=== PATIENT | female | born 1995 ===

== ENCOUNTER 2022-05-13 19:31 | Inpatient (IN) ==
[2022-05-13] MEDS ORDERED: LIDOCAINE 1% LOCAL 20 ML VIAL INFIL PRN (22:06)
[2022-05-13] MEDS ORDERED: OXYTOCIN 30 UNITS/500 ML BAG IV PRN (22:06)
--- NOTE | 2022-05-13 22:15 | History & Physical Report ---
Date of Service May 13, 2022 Assessment & Plan (1) Encounter for supervision of normal intrauterine in primigravida, antepartum: Plan: 26-year-old at 38 weeks 5 days gestational age in labor. Patient progressed from 2.5 cm to 4 cm over 2 hours. 1. Fetus: Cat 1 2. Labor: Progressing 3. GBS negative 4. Vitals WNL. (2) Normal labor and delivery: History of Present Illness Primary Care Provider: NO PCP 26-year-old currently at 38 weeks 5 days gestational age presents in labor. Reporting contractions every 5-6 minutes. Reports that contractions have been worsening throughout the day today. Has noted bloody discharge. Denies any concern for rupture. Initial OB Labs (10/25/21) Blood Type & RH B positive Antibody Screen negative HCT/HGB 44.2/15.1 Platelets 179 Hep C IgG 13yrs+ Old non reactive Pap Test Negative (10/25/21) Chlamydia Negative Gonorrhea Negative Rubella immune RPR Non Reactive Urine Culture/Screen no growth HBsAg non reactive HIV non reactive MCV 89.7 TSH 0.982 MSAFP screen Neg for ONTD (12/07/21) 24-28 Week OB Labs HCT/HGB 38.2/13.3 Glucose 96 gbs neg--akh Allergies Allergy/AdvReac Type Severity Reaction Status Date / Time No Known Allergies Allergy Verified 05/12/22 20:58 Home Medications Medication Instructions Recorded Confirmed Type prenat.vits,rufino,owb-mitu-awimn 1 tab PO DAILY 04/06/22 05/13/22 History Patient History Medical History (Updated 05/13/22 @ 22:14 by Manolo Pacheco MD) No significant past medical history Social History (Updated 04/06/22 @ 13:28 by Felisha Partida) Smoking Status: Never smoker Hx Alcohol Use: No Hx Substance Use: No Preferred Language: Romansh marital status: marital status details: rafita (26) [phone] Current Living Situation: Spouse Current Living Situation Comment: lives with spouse and parents. current occupational status: employed current occupation: PHD student. Physical Exam Genitourinary: normal external appearance Manual OB Exam: + cervical dilation 4 cm, + cervical effacement 80% and + station -1 OB Exam Monitor Tracing: + external FHT monitor used, + external uterine monitor used, + category I, + normal FHT variability and + variable decelerations ( occasional) progressed from 2.5/75/- 2 to 4/80/-1 Results & Data Vital Signs (Past 12 Hours) Vital Signs Temp Pulse Resp BP 05/13/22 20:33 65 05/13/22 20:33 116/75 05/13/22 19:45 71 142/85 H 05/13/22 19:50 36.8 C 16 Coding Level of Care Code None Diagnoses Encounter for supervision of normal intrauterine in primigravida, antepartum Z34.00 Normal labor and delivery O80
[2022-05-13] MEDS ORDERED: LIDOCAINE 2%/EPINEPHRINE 1:200,000 20 ML PF ONE (22:20)
[2022-05-13] MEDS ORDERED: SODIUM CHLORIDE 0.9% PF INJ 10 ML VIAL ONE (22:20)
[2022-05-13] MEDS ORDERED: ePHEDrine sulfate 50 MG/ML AMP ONE (22:20)
[2022-05-13] MEDS ORDERED: BUPIVACAINE 0.25% PF 30 ML VIAL ONE (22:20)
[2022-05-13] MEDS ORDERED: fentaNYL citrate PF 100 MCG/2 ML VIAL ONE (22:20)
[2022-05-13] MEDS ORDERED: fentaNYL 2MCG/ML ROPIVACAINE 1.25MG/ML 100 ML BAG EPI ONE (22:21)
[2022-05-13 22:50] LABS: Hematocrit (blood only) 37.4 % (37.0-47.0); Hemoglobin 13.5 g/dl (12.0-16.0); Mean Corpuscular Hemoglobin 33.6 pg (25.0-34.0); Mean Corpuscular Hgb Conc 36.1 g/dL (32.0-36.0); Mean Platelet Volume 12.5 fL (9.4-12.4); Platelet Count 120 K/uL (130-400); RDW Coefficient of Variation 11.8 % (11.5-14.5); RDW Standard Deviation 39.7 fL (36.4-46.3); Red Blood Count 4.02 M/uL (4.20-5.40); White Blood Count 9.34 K/ul (4.8-10.8)
[2022-05-13] MEDS: LACTATED RINGER'S 1,000 ML IV PRN (23:45)
[2022-05-14] MEDS ORDERED: diphenhydrAMINE 50 MG/ML VIAL IV PRN (00:31)
[2022-05-14] MEDS ORDERED: ePHEDrine sulfate 50 MG/ML AMP IV PRN (00:31)
[2022-05-14] MEDS ORDERED: ONDANSETRON INJ 2 MG/ML 2 ML VIAL IV PRN (00:31)
[2022-05-14] MEDS ORDERED: NALBUPHINE HCL INJ 10 MG/ML AMP IV PRN (00:31)
[2022-05-14] MEDS ORDERED: fentaNYL 2MCG/ML ROPIVACAINE 1.25MG/ML 100 ML BAG EPI PRN (00:31)
[2022-05-14] MEDS ORDERED: NALOXONE HCL 1 MG in SODIUM CHLORIDE 0.9% 1000ML 1,000 ML IV PRN (00:31)
[2022-05-14] MEDS ORDERED: NALOXONE HCL 0.4 MG/1 ML VIAL/CARP IV PRN (00:31)
--- NOTE | 2022-05-14 00:33 | Anesthesiology Consultation ---
Date of Service May 14, 2022 Assessment & Plan (1) Encounter for pre-operative examination: Chart Review Chart Review: Patient NOT seen in Pre Admission Testing and Acceptable Risk for Labor Epidural Consults Requested none History Height/Weight Height: 5 ft 6.14 in Weight: 67.585 kg Allergies Allergy/AdvReac Type Severity Reaction Status Date / Time No Known Allergies Allergy Verified 05/12/22 20:58 Medications Home Medications Medication Instructions Recorded Confirmed Last Taken prenat.vits,rufino,ozn-tolc-iijyi 1 tab PO DAILY 04/06/22 05/13/22 05/13/22 10:00 Active Medications Generic Name Dose Route Start Last Admin Trade Name Freq PRN Reason Stop Dose Admin Lactated Ringer's 1,000 mls @ 125 mls/hr 05/13/22 22:06 05/14/22 00:50 Lr IV 05/15/22 22:05 125 mls/hr .Q8H PRN Administration L&D Protocol Protocol Past Medical History Medical History No significant past medical history Exercise / Class Metabolic Activity II 4-5 Yardwork/Stairs/Walk up hill Social History Smoking Status: Never smoker Hx Alcohol Use: No Hx Substance Use: No substance use type: does not use Physical Exam Vital Signs Last Vital Signs Temp 36.6 C 05/13/22 22:54 Pulse 65 05/14/22 00:49 Resp 16 05/13/22 19:50 BP 121/73 05/14/22 00:49 Pulse Ox 99 05/14/22 00:45 Testing Laboratory Results 05/13/22 22:22
[2022-05-14] MEDS: LACTATED RINGER'S 1,000 ML IV PRN ×2 (00:50→05:14)
--- NOTE | 2022-05-14 07:04 | Labor Progress Brief Note ---
Date of Service May 14, 2022 Subjective Reason For Note: Routine Evaluation Assessment & Plan (1) Encounter for supervision of normal intrauterine in primigravida, antepartum: Plan: 26-year-old at 38 weeks 5 days gestational age in labor. Patient progressed from 2.5 cm to 4 cm over 2 hours. 1. Fetus: Cat 1 2. Labor: Progressing well. 3. GBS negative 4. Vitals WNL. (2) Normal labor and delivery: Admission and Anticipated Discharge Date Admission Date: May 13, 2022 Physical Exam Genitourinary: Manual OB Exam: + cervical dilation 10 cm, + cervical effacement 100% and + station 0 OB Exam Monitor Tracing: + external FHT monitor used, + external uterine monitor used, + category I and + normal FHT variability; no early decelerations present, no late decelerations present and no variable decelerations Results & Data Vital Signs (Past 12 Hours) Vital Signs Temp Pulse Resp BP Pulse Ox 05/14/22 07:01 69 97 05/14/22 06:58 92 H 87 L 05/14/22 06:56 71 96 05/14/22 06:51 73 95 05/14/22 06:48 70 131/71 05/14/22 06:46 70 96 05/14/22 06:41 68 97 05/14/22 06:36 68 97 05/14/22 06:32 86 120/80 05/14/22 06:31 75 95 05/14/22 06:26 73 95 05/14/22 06:21 79 95 05/14/22 06:17 69 108/58 L 05/14/22 06:16 67 95 05/14/22 06:11 66 95 05/14/22 06:06 67 95 05/14/22 06:04 64 114/55 L 05/14/22 06:01 65 95 05/14/22 05:56 72 96 05/14/22 05:51 69 96 05/14/22 05:48 58 L 121/65 05/14/22 05:46 62 96 05/14/22 05:41 68 96 05/14/22 05:36 73 97 05/14/22 05:34 63 122/60 05/14/22 05:31 77 96 05/14/22 05:26 85 96 05/14/22 05:25 84 91 05/14/22 05:21 73 97 05/14/22 05:17 65 117/73 05/14/22 05:16 76 96 05/14/22 05:11 65 97 05/14/22 05:06 60 96 05/14/22 05:01 96 05/14/22 05:01 58 L 05/14/22 05:01 56 L 119/69 05/14/22 04:56 60 96 05/14/22 04:51 62 96 05/14/22 04:46 58 L 122/63 95 05/14/22 04:41 58 L 95 05/14/22 04:36 60 95 05/14/22 04:31 64 95 05/14/22 04:32 60 126/64 05/14/22 04:26 59 L 95 05/14/22 04:21 72 95 05/14/22 04:20 72 89 L 05/14/22 04:18 57 L 117/72 05/14/22 04:16 60 95 05/14/22 04:11 57 L 95 05/14/22 04:06 61 95 05/14/22 04:01 58 L 95 05/14/22 04:02 56 L 117/69 05/14/22 03:57 18 05/14/22 03:57 37.1 C 18 05/14/22 03:56 58 L 96 05/14/22 03:51 60 94 05/14/22 03:46 67 96 05/14/22 03:47 71 117/77 05/14/22 03:43 76 88 L 05/14/22 03:41 69 96 05/14/22 03:36 72 95 05/14/22 03:32 71 120/74 05/14/22 03:31 87 96 05/14/22 03:26 94 05/14/22 03:26 61 05/14/22 03:26 65 94 05/14/22 03:21 67 95 05/14/22 03:20 61 94 05/14/22 03:16 68 100/57 L 05/14/22 03:15 69 95 05/14/22 03:10 95 05/14/22 03:10 62 05/14/22 03:10 64 94 05/14/22 03:05 60 95 05/14/22 03:01 73 95/58 L 0403/23 03:00 63 94 05/14/22 02:55 73 95 05/14/22 02:54 71 94 05/14/22 02:50 72 95 05/14/22 02:48 58 L 94 05/14/22 02:47 62 104/62 05/14/22 02:45 69 95 05/14/22 02:41 79 112/72 05/14/22 02:40 80 96 05/14/22 02:35 66 93 05/14/22 02:30 60 92 05/14/22 02:25 61 93 05/14/22 02:20 58 L 93 05/14/22 02:15 62 94 05/14/22 02:13 58 L 94 05/14/22 02:10 57 L 95 05/14/22 02:05 57 L 94 05/14/22 02:04 65 92 05/14/22 02:00 69 95 05/14/22 01:57 66 94 05/14/22 01:55 80 97 05/14/22 01:50 59 L 97 05/14/22 01:45 67 96 05/14/22 01:46 69 105/64 05/14/22 01:40 65 96 05/14/22 01:35 65 96 05/14/22 01:33 73 104/60 05/14/22 01:30 83 96 05/14/22 01:25 66 96 05/14/22 01:20 73 96 05/14/22 01:15 97 05/14/22 01:15 78 05/14/22 01:15 82 107/61 05/14/22 01:13 75 118/68 05/14/22 01:10 96 05/14/22 01:10 79 05/14/22 01:10 86 112/72 05/14/22 01:07 71 121/79 92 05/14/22 01:05 74 97 05/14/22 01:03 67 112/64 05/14/22 01:00 67 143/86 H 97 05/14/22 00:57 67 130/85 05/14/22 00:55 68 97 05/14/22 00:54 73 127/79 05/14/22 00:51 61 119/76 05/14/22 00:50 64 97 05/14/22 00:49 65 121/73 05/14/22 00:45 75 99 05/14/22 00:39 85 95 05/14/22 00:40 81 94 05/14/22 00:34 97 05/14/22 00:34 84 05/14/22 00:34 76 93 05/14/22 00:29 72 96 05/14/22 00:24 95 05/14/22 00:24 76 05/14/22 00:24 76 94 05/14/22 00:19 94 H 96 05/14/22 00:14 93 H 87 L 05/14/22 00:13 93 H 94 05/14/22 00:09 75 97 05/14/22 00:04 63 95 05/13/22 23:59 66 96 05/13/22 23:58 75 94 05/13/22 23:54 60 96 05/13/22 23:49 64 97 05/13/22 22:54 36.6 C 05/13/22 22:55 62 109/55 L 05/13/22 20:33 65 05/13/22 20:33 116/75 05/13/22 19:45 71 142/85 H 05/13/22 19:50 36.8 C 16 Coding Level of Care Code None Diagnoses Encounter for supervision of normal intrauterine in primigravida, antepartum Z34.00 Normal labor and delivery O80
[2022-05-14] MEDS ORDERED: DIPHTHERIA/TETANUS/PERTUSSIS 0.5mL SYR/VIAL (Age 7+yrs) IM ONE (08:26)
[2022-05-14] MEDS ORDERED: ACETAMINOPHEN 325 MG TAB PO PRN (08:26)
[2022-05-14] MEDS ORDERED: BENZOCAINE 20% AER SPR 82.5 GM CAN EXT PRN (08:26)
[2022-05-14] MEDS ORDERED: bisacodyL 10 MG SUPP PR PRN (08:26)
[2022-05-14] MEDS ORDERED: HYDROCORTISONE ACETATE 25 MG SUPP PR PRN (08:26)
[2022-05-14] MEDS ORDERED: OXYTOCIN 30 UNITS/500 ML BAG IV PRN (08:26)
[2022-05-14] MEDS ORDERED: oxyCODONE/ACETAMINOPHEN 5mg/325mg TAB PO PRN (08:26)
--- NOTE | 2022-05-14 09:13 | Delivery Summary ---
DATE OF SERVICE: 05/14/2022 PROCEDURE: Normal spontaneous vaginal delivery and second-degree perineal laceration repair. SURGEON: Manolo Pacheco MD. PREOPERATIVE DIAGNOSES: 1. Single intrauterine at 38 weeks 6 days gestational age. 2. Spontaneous labor. 3. Meconium-stained fluid. POSTOPERATIVE DIAGNOSES: 1. Single intrauterine at 38 weeks 6 days gestational age. 2. Spontaneous labor. 3. Meconium-stained fluid. 4. Status post procedure. ESTIMATED BLOOD LOSS: 300 mL DRAINS: Straight cath at the completion of the case. URINE OUTPUT: Approximately 500 mL per straight cath. COMPLICATIONS: None. FINDINGS: Viable female with weight pending and Apgars of 7 and 9 at one and five minutes re spectively. DESCRIPTION OF PROCEDURE: The patient progressed to 10 cm dilated, 100% effaced, positive 3 station, pushed over intact perineum with epidural anesthesia and delivered a viable female with weig ht and Apgars as noted above. Head of the delivered in KIRK position, restituted to right tra nsverse. A loose nuchal cord was noted, which was easily reduced. Body and shoulders quickly follow ed. was noted to be vigorous soon after delivery and a 1-minute delayed cord clamping was in itiated. Cord was then double clamped and cut. remained on maternal abdomen for approximate ly a minute and then was taken to the nursery staff for further evaluation. Cord blood was obtained. Attention was then turned to delivery of placenta, which was delivered intact, 3-vessel cord, gentl e cord traction. On inspection of perineum, vagina and cervix, there was noted to be a second-degree perineal laceration, which was repaired with 3-0 Vicryl in continuous running crown stitch. Needle, sponge, and instrument counts were correct at completion of the case with mother and stable in the immediate post-delivery period. Job ID: [id number]
--- NOTE | 2022-05-14 09:48 | Anesthesia Procedure Note ---
Date of Service May 14, 2022 Anesthesia Post Epidural Note Vital Signs Vital Signs: Temp Pulse Resp BP Pulse Ox 98.2 F 95 H 16 106/57 L 100 05/14/22 08:45 05/14/22 09:46 05/14/22 09:30 05/14/22 09:46 05/14/22 08:21 Pain Intensity Abdomen: Pain Intensity: 1 Notes Mental Status: alert / awake / arousable and participated in evaluation Nausea / Vomiting: adequately controlled Pain: adequately controlled Airway Patency, RR, SpO2: stable & adequate BP & HR: stable & adequate Hydration State: stable & adequate Neuraxial Anesthesia: was administered and sensory block is resolving Anesthetic Complications: no major complications apparent and Pt Satisfied with anesthetic care Epidural: Removed without complications and With tip intact
[2022-05-14] MEDS: IBUPROFEN 600 MG TAB PO PRN ×3 (13:13→23:34)
[2022-05-14] MEDS: DOCUSATE SODIUM 100 MG CAP PO SCH (21:31)
--- NOTE | 2022-05-15 06:38 | Obstetrical Progress Note ---
Date of Service May 15, 2022 Assessment & Plan (1) Encounter for care after hospital delivery: Plan - Overall, feeling well and eating well today - Infant feeding going well without concern - Urinating and passing gas appropriately - Ambulating well in room - Pain controlled w/ Ibuprofen - Hgb 13.5 on 05/13 - Vitals stable and wnl - Routine PP care progressing well - Anticipate discharge @ 24-48 hours PP - Recommending f/u outpatient in 6 weeks Admission and Anticipated Discharge Date Admission Date: May 13, 2022 Supervising Physician Co-Signing Physician Notes Resident Physician Supervision Note: I interviewed and examined the patient. Discussed with Dr. Do and agree with findings and plan as documented in the note. Any exceptions or clarifications are listed here: Doing well ppd 1. Routine care. Documented By: Marina Burnette MD, FACOG Subjective Patient is a 26 F who is PPD #1 following delivery at 38 6/7. She reports feeling well overall this morning. - Ambulation - well throughout room - Voiding/Wilkinson - independent voids, no dysuria or pressure - Gas/Stool - passing gas, no bowel movement - Diet - regular, no nausea or emesis - Lochia - diminishing, light amount - Feeding Type - breast feeding - Pain Level - 0/10, controlled with Ibuprofen Review of Systems - Denies fever, chills, sweats - Denies shortness of breath, difficulty breathing, chest pain, palpitations, chest pressure. - Denies breast pain. - Denies dysuria. - Denies headache or changes in vision. Physical Exam Physical Exam: General: Alert, oriented. No acute distress. Cardiac: RRR, normal S1/S2, no murmurs/rubs/gallops. Respiratory: Non-labored, CTAB, no wheezes/rales/rhonchi. Symmetric chest rise. Abdomen: Soft, nontender, nondistended. Bowel sounds present. Uterus: Uterine fundus firm, palpable 2 cm below umbilicus. Lower Extremities: Trace lower extremity edema or swelling. No deep calf pain. Leana's negative bilaterally. Results & Data Vital Signs (Past 12 Hours) Vital Signs Temp Pulse Resp BP Pulse Ox O2 Del Method 05/15/22 03:00 36.5 C 67 16 109/69 98 Room Air 05/14/22 23:35 36.5 C 83 18 126/81 98 Room Air 05/14/22 19:40 36.6 C 73 18 116/77 97 Room Air Resident Activity Tracking Resident Involvement: Resident Care Provided Care Provided: OB Delivery
[2022-05-15 07:29] LABS: Hematocrit (blood only) 30.8 % (37.0-47.0)
[2022-05-15] MEDS: IBUPROFEN 600 MG TAB PO PRN ×3 (08:15→20:45)
[2022-05-15] MEDS: PRENATAL VITAMIN 1 TAB PO SCH (08:16)
[2022-05-15] MEDS: DOCUSATE SODIUM 100 MG CAP PO SCH ×2 (08:17→20:45)
[2022-05-15] MEDS ORDERED: bisacodyL 5 MG TABEC PO SCH (20:00)
--- NOTE | 2022-05-16 06:47 | Obstetrical Progress Note ---
Date of Service May 16, 2022 Assessment & Plan (1) Encounter for care after hospital delivery: (2) Allergic dermatitis: Plan - Overall, feeling well and eating well today - Infant feeding going well without concern - Urinating and passing gas appropriately - Ambulating well in room - Pain controlled w/ Ibuprofen - Hgb 13.5 on 05/13, 11.0 on 05/15 - Allergic dermatitis: suspect a/w epidural tape, discussed OTC hydrocortisone and Benadryl cream for itch as patient wishes to go home today - Vitals stable and wnl - Routine PP care progressing well - Anticipate discharge @ 24-48 hours PP - Recommending f/u outpatient in 6 weeks Admission and Anticipated Discharge Date Admission Date: May 13, 2022 Supervising Physician Co-Signing Physician Notes Resident Physician Supervision Note: I was present with Dr. Cooper during the history and exam. I discussed the case with the resident and agree with the findings and plan as documented in the note. Any exceptions or clarifications are listed here: [None] Documented By: Ana Lorenz MD, FACOG Subjective Patient is a 26 F who is PPD #2 following delivery at 38 6/7. She reports feeling well overall this morning. - Ambulation - well throughout room - Voiding/Wilkinson - independent voids, no dysuria or pressure - Gas/Stool - passing gas, no bowel movement - Diet - regular, no nausea or emesis - Lochia - diminishing, light amount - Infant Feeding Type - breast feeding - Pain Level - 0/10, controlled with Ibuprofen Review of Systems - Denies fever, chills, sweats - Denies shortness of breath, difficulty breathing, chest pain, palpitations, chest pressure. - Denies breast pain. - Denies dysuria. - Denies headache or changes in vision - Notes rash on back near epidural site, itching Physical Exam Physical Exam: General: Alert, oriented. No acute distress. Cardiac: RRR, normal S1/S2, no murmurs/rubs/gallops. Respiratory: Non-labored, CTAB, no wheezes/rales/rhonchi. Symmetric chest rise. Abdomen: Soft, nontender, nondistended. Bowel sounds present. Uterus: Uterine fundus firm, palpable 2 cm below umbilicus. Lower Extremities: Trace lower extremity edema or swelling. No deep calf pain. Leana's negative bilaterally. Skin: Diffuse, pink, raised erythematous rash w/o vesicles or purulence, warmth to touch - localized to center of back (thoraco/lumbar junction) Results & Data Vital Signs (Past 12 Hours) Vital Signs Temp Pulse Resp BP Pulse Ox O2 Del Method 05/15/22 23:45 36.7 C 71 16 94/62 L 97 Room Air 05/15/22 20:20 36.9 C 67 16 115/78 98 Room Air Resident Activity Tracking Resident Involvement: Resident Care Provided Care Provided: OB Delivery
[2022-05-16] MEDS: IBUPROFEN 600 MG TAB PO PRN (08:08)
[2022-05-16] MEDS: PRENATAL VITAMIN 1 TAB PO SCH (08:08)
[2022-05-16] MEDS: DOCUSATE SODIUM 100 MG CAP PO SCH (08:08)
== END 2022-05-16 14:53 | disposition home or self-care (01) | DRG 807 ==
LOC: OPB 19:31 → 4S1 19:32 → 4E2 05-14 11:43